=== PATIENT | female | born 1995 | race Caucasian/White ===

== ENCOUNTER 2024-02-03 08:49 | Emergency (ER) | payer OTHER ==
--- NOTE | 2024-02-03 09:04 | EDPHYS ---
Physician Documentation [facility] Name: Cha Vora Age: 28 yrs Sex: Female : 1995 Arrival Date: 02/03/2024 Time: 08:49 Bed IW1 Private MD: ED Physician Gio Valdez HPI: 02/02 09:00 This 28 yrs old Female presents to ER via Unassigned with complaints of Toothache. kb 09:00 Pt is a 28 year old female who presents for toothache that started at 0300. States she kb has been dealing with a slight pain to the area for a few days, but the pain became more severe at 0300. Denies fever. No relief with OTC. . Historical: - Allergies: 09:24 No Known Allergies; hb - Home Meds: :24 None [Active]; hb - PMHx: :24 None; hb - PSHx: 09:24 None; hb - Immunization history:: Adult Immunizations up to date. - Infectious Disease History:: Denies. - Social history:: Smoking status: Patient denies any tobacco usage or history of. ROS: 09:00 Constitutional: As per HPI kb Exam: 09:00 Constitutional: This is a well developed, well nourished patient who is awake, alert, kb and in no acute distress. Head/Face: Normocephalic, atraumatic. Cardiovascular: Regular rate Respiratory: Respirations even and unlabored. No increased work of breathing. Talking in full sentences Skin: Warm, dry with normal turgor. Normal color. MS/ Extremity: Pulses equal, no cyanosis. Neurovascular intact. Full, normal range of motion. Neuro: Awake and alert, GCS 15, oriented to person, place, time, and situation. Moves all extremities. Normal gait. 09:00 ENT: Mouth: Gums: reddened, swollen, on the upper right first molar, Vital Signs: 09:02 BP 101 / 62; Pulse 80; Resp 16; Temp 98.3; Pulse Ox 100% on R/A; Weight 46.27 kg; hb Height 5 ft. 1 in. ; Pain 9/10; 09:02 Body Mass Index 19.27 (46.27 kg, 154.94 cm) hb 09:02 Pain Scale: Adult hb MDM: 08:56 Patient medically screened. kb 09:02 Differential diagnosis: dental caries, gingivitis, dental abscess, pericoronitis, kb aphthous ulcers. Data reviewed: vital signs, nurses notes. Counseling: I had a detailed discussion with the patient and/or guardian regarding the historical points, exam findings, and any diagnostic results supporting the discharge/admit diagnosis, the need for outpatient follow up, a dentist, to return to the emergency department if symptoms worsen or persist or if there are any questions or concerns that arise at home. Administered Medications: 09:22 Drug: HYDROcodone-acetaminophen PO 5 mg-325 mg 1 tabs PO once Route: PO; hb 09:22 Drug: Ketorolac IM 30 mg IM once Route: IM; Site: right deltoid; hb 09:22 Drug: Amoxicillin-Clavulanate PO 875 mg PO once Route: PO; hb Disposition: 10:13 Co-signature as Attending Physician, Gio Valdez MD I reviewed the patient's care rt provided by the Advanced Practice Provider and agree with the diagnosis and treatment plan. Disposition Summary: 02/03/24 09:03 Discharge Ordered Notes: Location: Home kb Condition: Stable kb Diagnosis - Periapical abscess without sinus kb Followup: kb - With: Emergency Department - When: As needed - Reason: Worsening of condition Followup: kb - With: Private Physician - When: 2 - 3 days - Reason: Recheck today's complaints, Continuance of care, Re-evaluation by your physician Discharge Instructions: - Discharge Summary Sheet kb - Dental Abscess kb - Dental Pain, [id number] kb Forms: - Work release form kb - Medication Reconciliation Form kb - Antibiotic Education kb - Prescription Opioid Use kb - Patient Portal Instructions kb - Leadership Thank You Letter kb Prescriptions: - Augmentin 875-125 mg Oral Tablet - take 1 tablet ORAL route every 12 hours for 10 days; 20 tablet; Refills: 0, kb Product Selection Permitted - Diclofenac Sodium 75 mg Oral tablet, delayed release (enteric coated) - take 1 tablet ORAL route 2 times per day As needed; 30 tablet; Refills: 0, kb Product Selection Permitted Signatures: Ritu Sanchez FNP-C FNP-Ckb Baxter, Heather, RN RN Gio Solis MD MD rt
[2024-02-03] MEDS ORDERED: AMOX/K CLAV 875 MG TAB ONE (09:18)
[2024-02-03] MEDS ORDERED: KETOROLAC 30 MG/ML INJ ONE (09:18)
[2024-02-03] MEDS ORDERED: HYDROCODONE/APAP 5/325 MG TAB ONE (09:19)
--- NOTE | 2024-02-03 09:28 | ER ---
Nurse's Notes [facility] Name: Cha Vora Age: 28 yrs Sex: Female : 1995 Arrival Date: 02/03/2024 Time: 08:49 Bed IW1 Private MD: Diagnosis: Periapical abscess without sinus Presentation: 02/02 09:02 Chief complaint: Right upper molar pain x 3 days. Coronavirus screen: At this time, the hb client does not indicate any symptoms associated with coronavirus-19. Ebola Screen: No symptoms or risks identified at this time. Initial Sepsis Screen: Does the patient meet any 2 criteria? No. Patient's initial sepsis screen is negative. Does the patient have a suspected source of infection? No. Patient's initial sepsis screen is negative. Risk Assessment: Do you want to hurt yourself or someone else? Patient reports no desire to harm self or others. Onset of symptoms was January 31, 2024. 09:02 Method Of Arrival: Ambulatory hb 09:02 Acuity: MIRTA 4 hb Triage Assessment: 09:04 General: Appears in no apparent distress. Behavior is calm, cooperative. Pain: Pain hb currently is 9 out of 10 on a pain scale. EENT: Reports pain in upper right first molar. Neuro: Level of Consciousness is awake, alert, obeys commands, Oriented to person, place, time, situation. Cardiovascular: Patient's skin is warm and dry. Respiratory: Respiratory effort is even, unlabored, Respiratory pattern is regular, symmetrical. Historical: - Allergies: 09:24 No Known Allergies; hb - Home Meds: 09:24 None [Active]; hb - PMHx: 09:24 None; hb - PSHx: 09:24 None; hb - Immunization history:: Adult Immunizations up to date. - Infectious Disease History:: Denies. - Social history:: Smoking status: Patient denies any tobacco usage or history of. Vital Signs: 09:02 BP 101 / 62; Pulse 80; Resp 16; Temp 98.3; Pulse Ox 100% on R/A; Weight 46.27 kg; hb Height 5 ft. 1 in. ; Pain 9/10; 09:02 Body Mass Index 19.27 (46.27 kg, 154.94 cm) hb 09:02 Pain Scale: Adult hb ED Course: 08:53 Patient arrived in ED. mg5 08:56 Ritu Sanchez FNP-C is [facility]. kb 08:56 Gio Valdez MD is Attending Physician. kb 09:24 Triage completed. hb 09:24 Arm band placed on. hb 09:26 Carleen Alfonso, RN is Primary Nurse. hb Administered Medications: 09:22 Drug: HYDROcodone-acetaminophen PO 5 mg-325 mg 1 tabs PO once Route: PO; hb 09:22 Drug: Ketorolac IM 30 mg IM once Route: IM; Site: right deltoid; hb 09:22 Drug: Amoxicillin-Clavulanate PO 875 mg PO once Route: PO; hb Outcome: 09:03 Discharge ordered by . kb 09:26 Patient left the ED. hb Signatures: Ritu Sanchez FNP-C FNP-Juanb Carleen Alfonso, RN RN Carmen Santos mg5
[2024-02-03 09:31] VITALS: BP 101/62; TEMP 98.3; O2SAT 100
== END 2024-02-03 09:26 | disposition home or self-care (01) ==
LOC: ER 08:49
DX: K04.7 Periapical abscess without sinus (principal)
CPT/HCPCS: 96372; 99284

== ENCOUNTER 2024-07-16 07:53 | Emergency (ER) | payer OTHER ==
--- NOTE | 2024-07-16 08:20 | EDPHYS ---
Physician Documentation [facility] Name: Cha Vora Age: 28 yrs Sex: Female : 1995 Arrival Date: 07/16/2024 Time: 07:53 Bed 8 Private MD: ED Physician Sujit Main HPI: 07/16 08:21 This 28 yrs old Female presents to ER via Ambulatory with complaints of Flu Symptoms. ms3 08:21 28-year-old female with no past medical history presents to the emergency department ms3 for sore throat, body aches, headache that began last night. Patient states her discomfort is a 6/10. Patient called into work today and states she needs a physician note. Patient notes her daughter was diagnosed with flu 2 days ago.. 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 - Infectious Disease History:: Denies. - Social history:: Smoking status: Patient denies any tobacco usage or history of. Smoking status: Reported history of juuling and/or vaping. ROS: 08:21 Constitutional: Negative for fever, and chills. Cardiovascular: Negative for chest ms3 pain, and palpitations. Respiratory: Negative for shortness of breath, cough, wheezing, and pleuritic chest pain, Abdomen/GI: Negative for abdominal pain, nausea, vomiting, diarrhea, and constipation, MS/Extremity: Negative for injury and deformity, Skin: Negative for injury, rash, and discoloration, Exam: 08:21 Constitutional: This is a well developed, well nourished patient who is awake, alert, ms3 and in no acute distress. Cardiovascular: Regular rate and rhythm with a normal S1 and S2. No gallops, murmurs, or rubs. Normal PMI, no JVD. No pulse deficits. Respiratory: Lungs have equal breath sounds bilaterally, clear to auscultation and percussion. No rales, rhonchi or wheezes noted. No increased work of breathing, no retractions or nasal flaring. Abdomen/GI: Soft, non-tender, with normal bowel sounds. No distension or tympany. No guarding or rebound. No evidence of tenderness throughout. Skin: Warm, dry with normal turgor. Normal color with no rashes, no lesions, and no evidence of cellulitis. MS/ Extremity: Pulses equal, no cyanosis. Neurovascular intact. Full, normal range of motion. Vital Signs: 08:06 BP 113 / 68; Pulse 96; Resp 18; Temp 97.2; Pulse Ox 100% ; Weight 47.17 kg; Height 5 iw ft. 1 in. ; 08:06 Body Mass Index 19.65 (47.17 kg, 154.94 cm) iw MDM: 08:19 Medical Screening Exam initiated ms3 08:21 Differential Diagnosis: Influenza Upper Respiratory Infection Viral Syndrome. Data ms3 reviewed: vital signs, nurses notes, and as a result, I will discharge patient. Counseling: I had a detailed discussion with the patient and/or guardian regarding the historical points, exam findings, and any diagnostic results supporting the discharge/admit diagnosis, the need for outpatient follow up, to return to the emergency department if symptoms worsen or persist or if there are any questions or concerns that arise at home. Special discussion: I discussed with the patient/guardian in detail that at this point there is no indication for admission to the hospital. It is understood, however, that if the symptoms persist or worsen the patient needs to return immediately for re-evaluation. ED course: Discussed testing with patient and patient's daughter tested positive for flu A. Patient with symptoms consistent with flu. Discussed Tamiflu with patient and patient declines. All questions were answered. Return precautions discussed include worsening symptoms, or any other concerns. Patient to follow-up with Dr. Carvalho in 2 to 3 days.. Administered Medications: No medications were administered Disposition Summary: 07/16/24 08:20 Discharge Ordered Notes: Location: Home ms3 Condition: Stable ms3 Diagnosis - Influenza ms3 - Myalgia ms3 Followup: ms3 - With: Fred Carvalho DO - When: 2 - 3 days - Reason: Recheck today's complaints Discharge Instructions: - Discharge Summary Sheet ms3 - Influenza, Adult ms3 - Fever, Adult, [id number] ms3 Forms: - Work release form ms3 - Medication Reconciliation Form ms3 - Antibiotic Education ms3 - Prescription Opioid Use ms3 - Patient Portal Instructions ms3 - Leadership Thank You Letter ms3 Signatures: Dispatcher [employer] Glory Aguilar, RN RN Sujit Schmitt DO DO ms3 Corrections: (The following items were deleted from the chart) 08: 07:56 Influenza Screen (A \T\ B)+BA.LAB.BRZ ordered. EDMS EDMS 08: 07:56 SARS-COV-2 Antigen Rapid+I.LAB.BRZ ordered. EDMS EDMS
--- NOTE | 2024-07-16 08:20 | ER ---
Nurse's Notes [facility] Name: Cha Vora Age: 28 yrs Sex: Female : 1995 Arrival Date: 07/16/2024 Time: 07:53 Bed 8 Private MD: Diagnosis: Influenza;Myalgia Presentation: 07/16 08:06 Chief complaint: Patient states: sore throat cough, runny nose, daughter had the flu, iw she needs a note for work, symptoms started 2 days ago. Coronavirus screen: Client presents with at least one sign or symptom that may indicate coronavirus-19. Ebola Screen: No symptoms or risks identified at this time. Initial Sepsis Screen: Does the patient meet any 2 criteria? No. Patient's initial sepsis screen is negative. Does the patient have a suspected source of infection? No. Patient's initial sepsis screen is negative. Risk Assessment: Do you want to hurt yourself or someone else? Patient reports no desire to harm self or others. Onset of symptoms was July 14, 2024. 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 - Infectious Disease History:: Denies. - Social history:: Smoking status: Patient denies any tobacco usage or history of. Smoking status: Reported history of juuling and/or vaping. Screenin:15 [facility] ED Fall Risk Assessment (Adult) History of falling in the last 3 months, iw including since admission No falls in past 3 months (0 pts) Confusion or Disorientation No (0 pts) Intoxicated or Sedated No (0 pts) Impaired Gait No (0 pts) Mobility Assist Device Used No (0 pt) Altered Elimination No (0 pt) Score/Fall Risk Level 0 - 2 = Low Risk Oriented to surroundings, Maintained a safe environment. Abuse screen: Denies threats or abuse. Nutritional screening: No deficits noted. Tuberculosis screening: No symptoms or risk factors identified. Assessment: 08:13 General: Appears in no apparent distress. Behavior is calm, cooperative. General: iw Reports feeling ill for fatigue for. Pain: Complains of pain in head. Neuro: Level of Consciousness is awake, alert, obeys commands, Oriented to person, place, time, situation, Moves all extremities. Cardiovascular: Patient's skin is warm and dry. Respiratory: Respiratory effort is even, unlabored, Respiratory pattern is regular, symmetrical. GI: Abdomen is flat. Derm: Skin is intact, is healthy with good turgor. Musculoskeletal: Range of motion: intact in all extremities. Vital Signs: 08:06 BP 113 / 68; Pulse 96; Resp 18; Temp 97.2; Pulse Ox 100% ; Weight 47.17 kg; Height 5 iw ft. 1 in. ; 08:06 Body Mass Index 19.65 (47.17 kg, 154.94 cm) iw ED Course: 07:55 Patient arrived in ED. mr 07:55 Sujit Main DO is Attending Physician. ms3 08:07 Triage completed. iw 08:07 Arm band placed on. iw 08:13 Glory Asher, RN is Primary Nurse. iw 08:15 No provider procedures requiring assistance completed. Patient did not have IV access iw during this emergency room visit. 08:19 Fred Carvalho DO is Referral Physician. ms3 08:26 Patient has correct armband on for positive identification. Bed in low position. Side ld1 rails up X2. Pulse ox on. NIBP on. Door closed. Noise minimized. Administered Medications: No medications were administered Medication: 08:15 VIS not applicable for this client. iw Outcome: 08:20 Discharge ordered by . ms3 08:26 Discharged to home ambulatory, ld1 08:26 Condition: stable 08:26 Discharge instructions given to patient, Instructed on discharge instructions, follow up and referral plans. Demonstrated understanding of instructions, follow-up care, 08:26 Patient left the ED. ld1 Signatures: Neetu Nichole, Reg Reg Glory Asher, MARISSA ANN iw Sujit Main DO DO ms3 Nusrat Main RN RN ld1
[2024-07-16 11:04] VITALS: BP 113/68; TEMP 97.2; O2SAT 100
== END 2024-07-16 08:26 | disposition home or self-care (01) ==
LOC: ER 07:53
DX: J11.1 Influenza due to unidentified influenza virus with other respiratory manifestations (principal)

== ENCOUNTER 2025-03-13 10:55 | Emergency (ER) | payer OTHER, SELFPAY ==
--- OUTSIDE RECORDS SUMMARY | 2025-03-13 10:58 | XMS REPORT | Continuity of Care Document ---
Author Name Unknown Address [address] [place], [place] [id number] [facility] Address [address] [place] [address] [place] [id number] Care Team Providers Care Drainage Design Coordinator Name Role Phone Unavailable Unavailable Unavailable Encounters Start Date/Time End Date/Time Encounter Type Admission Type Attending Clinicians Care Facility Care Department Encounter ID Source 2024-11-19 16:51:58 2024-11-19 16:51:58 Outpatient [facility] [id number] Geremias Jaquez
--- NOTE | 2025-03-13 11:58 | EDPHYS ---
Physician Documentation [facility] Name: Cha Vora Age: 29 yrs Sex: Female : 1995 Arrival Date: 03/13/2025 Time: 10:55 Bed 24 Private MD: ED Physician Sujit Main HPI: 03/13 11:25 This 29 yrs old Female presents to ER via Unassigned with complaints of Ear Pain. cr8 11:25 Patient is a 29-year-old female that comes emergency room complaining of right ear pain cr8 since yesterday. Took ibuprofen yesterday but none today. Denies any drainage fever. Decreased hearing is reported. She is having no other symptoms.. Historical: - Allergies: 11:28 No Known Allergies; iw - Home Meds: 11:28 None [Active]; iw - PMHx: 11:28 None; iw ROS: 11:53 Constitutional: as per HPI cr8 Exam: 11:53 Constitutional: This is a well developed, well nourished patient who is awake, alert, cr8 and in no acute distress. 11:53 ENT: Ear canal(s): cerumen impaction, that is moderate, occluding the right ear canal, Irrigating the right ear and remove the cerumen impaction. Behind the eardrum there was moderate redness. No evidence of tympanic membrane perforation. No evidence of edema to the auditory canal.. Vital Signs: 11:28 BP 104 / 58; Pulse 55; Resp 16; Temp 98.1; Pulse Ox 100% ; iw 12:18 BP 110 / 60; Pulse 59; Resp 18; Pulse Ox 100% ; Pain 0/10; iw 12:18 Pain Scale: Adult iw Procedures: 11:53 Performed Ear irrigation. Irrigated the right ear with lukewarm tap water. Then removed cr8 the remaining earwax with a curette.. MDM: 11:25 Medical Screening Exam initiated cr8 11:56 Data reviewed: vital signs, nurses notes. Counseling: I had a detailed discussion with cr8 the patient and/or guardian regarding the historical points, exam findings, and any diagnostic results supporting the discharge/admit diagnosis, the need for outpatient follow up. ED course: Patient coming with right ear pain. Differential includes but not limited to following Otitis media, otitis externa, tympanic membrane rupture, cerumen impaction On examination there was evidence of cerumen impaction. Once this was removed the right ear drum was erythemic. There is no evidence of tympanic membrane rupture. Auditory canal was unremarkable. On exam there is no evidence of mastoiditis. There is no warmth tenderness or edema to the right mastoid process and the right helix is not elevated. Will go and place patient on antibiotics, suggest [id number] earwax removal and follow-up with PCP.. Administered Medications: 12:11 Drug: Ibuprofen PO 400 mg PO once Route: PO; iw 12:18 Follow up: Response: No adverse reaction; Pain is decreased iw Disposition: 20:09 I was immediately available on-site in the Emergency Department for consultation in the ms3 care of the patient. Disposition Summary: 03/13/25 11:58 Discharge Ordered Notes: Location: Home cr8 Condition: Stable cr8 Diagnosis - Acute suppurative otitis media without spontaneous rupture of ear drum, right ear cr8 - Impacted cerumen, right ear cr8 Followup: cr8 - With: Emergency Department - When: As needed - Reason: Worsening of condition, Recheck today's complaints, Continuance of care Discharge Instructions: - Discharge Summary Sheet cr8 - Earwax Buildup, Adult cr8 - Otitis Media, Adult cr8 - Ear Irrigation cr8 Forms: - Work release form iw - Medication Reconciliation Form cr8 - Antibiotic Education cr8 - Patient Portal Instructions cr8 - Leadership Thank You Letter cr8 Prescriptions: - Augmentin 875-125 mg Oral Tablet - take 1 tablet ORAL route every 12 hours for 10 days; 20 tablet; Refills: 0, cr8 Product Selection Permitted Signatures: Glory Asher, RN RN iw Sujit Main DO DO ms3 Cliff Fowler NP RN CLINICIAN cr8
--- NOTE | 2025-03-13 11:58 | ER ---
Nurse's Notes [facility] Name: Cha Vora Age: 29 yrs Sex: Female : 1995 Arrival Date: 03/13/2025 Time: 10:55 Bed 24 Private MD: Diagnosis: Acute suppurative otitis media without spontaneous rupture of ear drum, right ear;Impacted cerumen, right ear Presentation: 03/13 11:28 Acuity: MIRTA 5 iw 11:28 Acuity: MIRTA 4 iw 11:28 Chief complaint: Patient states: right ear pain X 2 days. Coronavirus screen: At this iw time, the client does not indicate any symptoms associated with coronavirus-19. Ebola Screen: No symptoms or risks identified at this time. Initial Sepsis Screen: Does the patient meet any 2 criteria? No. Patient's initial sepsis screen is negative. Does the patient have a suspected source of infection? No. Patient's initial sepsis screen is negative. Risk Assessment: Do you want to hurt yourself or someone else? Patient reports no desire to harm self or others. 11:28 Method Of Arrival: Ambulatory iw Historical: - Allergies: 11:28 No Known Allergies; iw - Home Meds: 11:28 None [Active]; iw - PMHx: 11:28 None; iw Screenin:12 [facility] ED Fall Risk Assessment (Adult) History of falling in the last 3 months, iw including since admission No falls in past 3 months (0 pts) Confusion or Disorientation No (0 pts) Intoxicated or Sedated No (0 pts) Impaired Gait No (0 pts) Mobility Assist Device Used No (0 pt) Altered Elimination No (0 pt) Score/Fall Risk Level 0 - 2 = Low Risk Oriented to surroundings, Maintained a safe environment. Abuse screen: Denies threats or abuse. Nutritional screening: No deficits noted. Tuberculosis screening: No symptoms or risk factors identified. Assessment: 12:11 General: Appears in no apparent distress. Behavior is calm, cooperative. Pain: iw Complains of pain in right ear. Neuro: Level of Consciousness is awake, alert, obeys commands, Oriented to person, place, time, situation, Moves all extremities. Full function. EENT: Ear canal. 12:18 Reassessment: No changes from previously documented assessment. Patient is alert, iw oriented x 3, equal unlabored respirations, skin warm/dry/pink. Vital Signs: 11:28 BP 104 / 58; Pulse 55; Resp 16; Temp 98.1; Pulse Ox 100% ; iw 12:18 BP 110 / 60; Pulse 59; Resp 18; Pulse Ox 100% ; Pain 0/10; iw 12:18 Pain Scale: Adult iw ED Course: 10:59 Patient arrived in ED. al6 11:06 [facility] Fowler [facility] cr8 11:06 Sujit Main DO is Attending Physician. cr8 11:28 Triage completed. iw 12:10 Glory Asher, RN is Primary Nurse. iw 12:11 Arm band placed on. iw 12:11 Patient has correct armband on for positive identification. iw 12:17 No provider procedures requiring assistance completed. iw 12:18 Patient did not have IV access during this emergency room visit. iw Administered Medications: 12:11 Drug: Ibuprofen PO 400 mg PO once Route: PO; iw 12:18 Follow up: Response: No adverse reaction; Pain is decreased iw Medication: 12:17 VIS not applicable for this client. iw Outcome: 11:58 Discharge ordered by . cr8 12:18 Discharged to home ambulatory, iw 12:18 Condition: stable 12:18 Discharge instructions given to patient, Instructed on discharge instructions, follow up and referral plans. Demonstrated understanding of instructions, Prescriptions given X 1, 12:19 Patient left the ED. iw Signatures: Glory Asher, RN RN iw DyllanHaydee al6 Cliff Fowler NP PATIENT CARE SPECIALIST cr8 Corrections: (The following items were deleted from the chart) 12:11 11:28 BP 104 / 58; Pulse 55bpm; Resp 16bpm; Pulse Ox 100%; Temp 98.1F; iw iw
[2025-03-13] MEDS ORDERED: IBUPROFEN 400 MG TAB ONE (12:09)
[2025-03-13 12:34] VITALS: O2SAT 96
[2025-03-13 12:40] VITALS: BP 110/60; TEMP 98
== END 2025-03-13 12:19 | disposition home or self-care (01) ==
LOC: ER 10:55
DX: H66.001 Acute suppurative otitis media without spontaneous rupture of ear drum, right ear (principal); H61.21 Impacted cerumen, right ear
CPT/HCPCS: 99283